=== PATIENT | male | born 1995 | race African-American/Black ===

== ENCOUNTER 2024-05-16 16:15 | Emergency (ER) | payer SELFPAY ==
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
[2024-05-16 18:07] VITALS: BP 119/70; PULSE 68; RESP 16; TEMP 36.8; O2SAT 100
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
== END 2024-05-16 20:45 | disposition home or self-care (01) ==
PROVIDERS: Emergency Provider Registered Nurse
DX: S16.1XXA Strain of muscle, fascia and tendon at neck level, initial encounter (principal); V89.0XXA Person injured in unspecified motor-vehicle accident, nontraffic, initial encounter
CPT/HCPCS: 72040; 99203; G0463

== ENCOUNTER 2024-06-11 16:23 | Emergency (ER) | payer SELFPAY ==
--- NOTE | ~2024-06-11 | CT_ITS ---
History: Right-sided headache PROCEDURE: CT head without contrast. COMPARISON: None TECHNIQUE: Axial imaging of the head performed from the skull base to the vertex without IV contrast. Sagittal a nd coronal reformations obtained. DLP: 605 mGy-cm FINDINGS: The ventricles are normal in size, shape and position. There is no mass, mass effect or midline shift. There is no abnormal extra-axial fluid collection or intracranial hemorrhage. Visualized paranasal sinuses are clear. The mastoid air cells are well aerated. No acute displaced fractures within the overlying cranium. Impression: No acute intracranial hemorrhage or suspicious mass effect. Reviewed, dictated and finalized at location A. GRINDER Impression: No acute intracranial hemorrhage or suspicious mass effect.
[2024-06-11 16:49] VITALS: BP 127/83; PULSE 81; RESP 19; TEMP 36.7; O2SAT 100
--- NOTE | 2024-06-11 17:23 | ED.HA ---
HPI - Headache General Chief Complaint: Headache Stated Complaint: Headache Time Seen by Provider: 06/11/24 16:26 Source: patient Mode of arrival: ambulatory Limitations: no limitations History of Present Illness HPI Narrative: Patient is a 28-year-old male who presents the ED with report a right-sided headache. Patient reports having intermittent headaches over the last couple of days. States they occur seasonally. Last episode was 2 days ago. Present in his right periorbital region. Pain is a throbbing sensation. He does have some drainage from right-sided eye and nose when the pain occurs. Began having pain again this afternoon which was more severe than usual. Took [id number] Excedrin and theraflu prior to arrival and reports some improvement of pain currently. Denies significant dizziness, lightheadedness, nausea, vomiting, vision changes, photophobia, phonophobia, fevers, focal weakness or numbness. Related Data Allergies Allergy/AdvReac Type Severity Reaction Status Date / Time No Known Allergies Allergy Verified 06/11/24 16:24 Review of Systems Review of Systems: All systems reviewed & are unremarkable except as noted in HPI. All systems reviewed & are unremarkable except as noted in HPI and below PMFSH Social History Social History Smoking status: Never smoker Alcohol intake: unknown Substance use: unknown Occupation/Education: student Gender identity (if verbalized by the patient): Male Exam Narrative: GENERAL: Well appearing, well-nourished, non-toxic, in no acute distress. HEAD: Normocephalic, atraumatic. EYES: PERRL/EOMI, conjunctiva clear. No nystagmus. NECK: Normal ROM, supple, no meningeal signs. RESPIRATORY: Airway patent, respirations nonlabored. Clear to auscultation bilaterally, no rales, rhonchi, wheezing. CARDIOVASCULAR: Regular rate and rhythm without murmurs, rubs, or gallops. MUSCULOSKELETAL: Moves all extremities. No gross deformities. SKIN: Warm, dry, normal color. NEURO: A&O X3. Speech clear. Cranial nerves II-XII grossly intact. Steady gait. No ataxic movements. Strength 5/5 in extremities. No focal deficits. PSYCHIATRIC: Appropriate mood and affect. Normal interaction. Course Vital Signs Vital signs: Vital Signs Temperature 98.0 F 06/11/24 16:49 Pulse Rate 81 06/11/24 16:49 Respiratory Rate 19 06/11/24 16:49 Blood Pressure 127/83 06/11/24 16:49 Pulse Oximetry 100 06/11/24 16:49 Oxygen Delivery Room Air 06/11/24 16:49 Temperature 98.0 F 06/11/24 16:49 Pulse Rate 72 06/11/24 17:45 Respiratory Rate 15 06/11/24 17:45 Blood Pressure 116/77 06/11/24 17:45 Pulse Oximetry 100 06/11/24 18:17 Oxygen Delivery Room Air 06/11/24 18:17 Oxygen Flow Rate 15 06/11/24 17:45 MDM - Headache MDM Narrative Medical decision making narrative: Patient presented to ED with intermittent episodes of right periorbital headache. Vital signs are stable upon arrival. Patient is in no acute distress. Patient is neurologically intact. No focal deficits appreciated on exam. Symptoms seem most consistent with cluster headache- unilateral, periorbital, temporal, ipsilateral lacrimation/nasal congestion, intermittent episodic pain, seasonal. CT brain was obtained and negative for acute findings. Patient was placed on non-rebreather mask for approx 15 minutes. On re-evaluation, he is feeling much improved. He did additionally take Tylenol and Excedrin prior to arrival. Offered to provide additional pain relief, however patient declined, feels pain is tolerable at this time. Ready to go home. Discussed further management of headaches at home, discussed possibility of cluster headache and recommendation to follow-up with neurology for further evaluation. He is in agreement with plan. Given strict return precautions. Discharged in stable condition. Medical Records Attestation: I reviewed the patient's medical records. Imaging Data Attestation: I personally reviewed and interpreted this imaging study as follows: Radiologist's impression: ITS Impressions Head CT 06/11/24 17:43 Impression: No acute intracranial hemorrhage or suspicious mass effect. Discharge Plan Discharge Clinical Impression: Cluster headache Qualifiers: Headache chronicity pattern: episodic headache Intractability: not intractable Qualified Code(s): G44.019 - Episodic cluster headache, not intractable Patient Disposition: Home, Self-Care Condition: Stable Instructions: Antibiotic Form, Cluster Headache (ED), Migraine Headache (ED) Additional Instructions: Continue Tylenol and ibuprofen as needed for pain. Utilize Zofran as needed for further nausea. Get plenty of rest. Stay well hydrated. Recommend low light/ low stimulus environment, limiting screen time. Follow-up with your primary care doctor and Neurology for further evaluation and management of headaches. Call Neurology office to make appointment. Return to the ED if you experience worsening or severe pain, severe dizziness, vision changes, unable to keep down food or drink, numbness or weakness of arm or leg, passing out, or any other symptoms of concern. Patient Language: South Korean Prescriptions: New ondansetron 4 mg tablet,disintegrating 4 mg PO Q8H PRN (Reason: nausea and vomiting) Qty: 15 0RF No Action cyclobenzaprine 10 mg tablet 10 mg PO HS PRN (Reason: muscle spasm) Qty: 10 0RF ibuprofen 600 mg tablet 600 mg PO QID PRN (Reason: fever or pain) Qty: 20 0RF Follow-up/Referrals: Deric Ness MD [Physician] - (NEUROLOGY) PHYSICIAN,LINEN ATTENDANT [Non-Staff] - Time of Disposition: 18:35
[2024-06-11 17:45] VITALS: BP 116/77; PULSE 72; RESP 15; O2SAT 100
[2024-06-11 18:17] VITALS: O2SAT 100
== END 2024-06-11 18:45 | disposition home or self-care (01) ==
LOC: ANHED 18:36
PROVIDERS: Emergency Provider Physician Assistant
DX: G44.019 Episodic cluster headache, not intractable (principal)
CPT/HCPCS: 70450; 99284

== ENCOUNTER 2024-06-19 14:33 | Emergency (ER) | payer SELFPAY ==
--- NOTE | ~2024-06-19 | CT_ITS ---
History: Headache PROCEDURE: CT head without contrast. COMPARISON: 06/11/2024 TECHNIQUE: Axial imaging of the head performed from the skull base to the vertex without IV contrast. Sagittal a nd coronal reformations obtained. DLP: 681 mGy-cm FINDINGS: The ventricles are normal in size, shape and position. There is no mass, mass effect or midline shift. There is no abnormal extra-axial fluid collection or intracranial hemorrhage. Visualized paranasal sinuses are clear. The mastoid air cells are well aerated. No acute displaced fractures within the overlying cranium. Impression: No acute intracranial hemorrhage or suspicious mass effect. Reviewed, dictated and finalized at location A. [employer] Impression: No acute intracranial hemorrhage or suspicious mass effect.
--- NOTE | ~2024-06-19 | CT_ITS ---
EXAMINATION: CTA brain carotid DATE: 06/19/2024 22:08 INDICATION: persistent headache, R sided TECHNIQUE: Computed tomographic angiography (CTA) of the head and neck was performed with 100 mL Omni paque-350 intravenous contrast. Automated exposure control and iterative reconstruction technique wer e employed. The dose-length product was 1132.01 mGy-cm. Maximum intensity projection and volume rende red 3D-reconstructions were created by the technologist on a separate workstation. COMPARISON: CT brain 06/19/2024. FINDINGS: CTA HEAD: No large vessel occlusion, aneurysm, high flow vascular malformation, nidus or extravasation. Patent cerebral veins. Symmetric parenchymal enhancement. CTA NECK: Aortic arch and proximal great vessels: Bovine arch. Atherosclerotic calcifications at the visualized aortic arch and proximal great vessels. Right common carotid, carotid bifurcation, and internal carotid artery: No plaque.There is 0% stenosi s of the proximal right internal carotid artery relative to normal distal artery lumen diameter (NASC ET criteria). Left common carotid, carotid bifurcation, and internal carotid artery: No plaque.There is 0% stenosis of the proximal left internal carotid artery relative to normal distal artery lumen diameter (NASCET criteria). Vertebral arteries: No significant plaque or stenosis. Right vertebral artery is dominant, Other findings: None. IMPRESSION: No large vessel intracranial occlusion, high-grade intracranial stenosis, or aneurysm. No carotid or vertebral artery occlusion, dissection, or significant stenosis. Reviewed, dictated and finalized at location K. [employer] SPECIALIST IMPRESSION: No large vessel intracranial occlusion, high-grade intracranial stenosis, or an eurysm. No carotid or vertebral artery occlusion, dissection, or significant stenosis.
[2024-06-19 14:36] VITALS: BP 119/71; PULSE 84; RESP 16; TEMP 36.4; O2SAT 100
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
[2024-06-19 16:58] VITALS: BP 121/82; PULSE 84; RESP 15; O2SAT 100
[2024-06-19] MEDS: ACETAMINOPHEN 500 MG TABLET 1000 MG PO (17:09)
[2024-06-19] MEDS: diphenhydrAMINE HCl INJ 50 MG/ML VIAL 25 MG IV PUSH (17:10)
[2024-06-19] MEDS: METOCLOPRAMIDE HCL INJ 10 MG/2 ML VIAL IV PUSH (17:15)
[2024-06-19 21:00] VITALS: BP 122/73; PULSE 82; RESP 18; O2SAT 98
[2024-06-19] MEDS: KETOROLAC 30 MG/ML VIAL (*BKC) IV PUSH (21:14)
[2024-06-19] MEDS: MAGNESIUM SULF 1 GM/D5W 100 ML 1 GM/100 ML BAG IVPB (21:14)
[2024-06-19] MEDS: SODIUM CHLORIDE 0.9% IV 1,000 ML 999 ML IV CONT (21:21)
[2024-06-19 21:37] LABS: Basophils Percent Auto 0.2 % (0.2-1.2); Eosinophils Percent Auto 0.5 % (0-4.4); Hemoglobin 15.5 g/dL (14.0-18.0); Immature Granulocyte Absolute 0.04 K/mm3 (0.00-0.031); Immature Granulocyte Percent A 0.7 % (0-0.5); Lymphocytes Absolute Auto 2.53 K/mm3 (0.9-3.2); Mean Corpuscular Hemoglobin 28.7 pg (26-34); Mean Platelet Volume 9.7 fl (7.4-10.4); Monocytes Absolute Auto 0.4 K/mm3 (0.1-0.6); Monocytes Percent Auto 7.3 % (2.6-8.5); Neutrophils Absolute Auto 2.8 K/mm3 (1.3-6.7); Neutrophils Percent Auto 48.3 % (45.5-73.1); Platelet Count Result 249 k/mm3 (150-375); Red Cell Distribution Width 13.2 % (11.5-14.5); White Blood Count 5.9 K/mm3 (4.5-10.0)
[2024-06-19 21:48] LABS: Alanine Aminotransferase 212 U/L (6-50); Albumin Level 4.7 g/dL (3.5-5.1); Alkaline Phosphatase 78 U/L (38-126); Anion Gap 11 mmol/L (4-12); Aspartate Amino Transferase 109 U/L (17-59); Bilirubin,Total 1.3 mg/dL (0.2-1.3); Blood Urea Nitrogen 10 mg/dL (9-20); Calcium 9.8 mg/dL (8.4-10.2); Carbon Dioxide 27 mmol/L (22-30); Chloride 101 mmol/L (98-107); Estimated CRCL calculation 131 ml/min; Estimated Glomerular Filt Rate > 60; Glucose 89 mg/dL (65-110); Potassium 4.1 mmol/L (3.4-5.0); Sodium 139 mmol/L (137-145)
[2024-06-19 21:49] LABS: Partial Thromboplastin Time 27.3 Seconds (22.3-36.8); Prothrombin Time 13.9 Seconds (11.1-14.7)
[2024-06-19 22:12] LABS: Erythrocyte Sedimentation Rate 1 mm/hr (0-20)
[2024-06-19 22:13] LABS: Influenza A QL RT-PCR Negative (Negative); Influenza B QL RT-PCR Negative (Negative); SARS-CoV-2 RNA PCR Negative (Negative)
[2024-06-19] MEDS: dexAMETHasone 2 MG TABLET 10 MG PO (23:12)
[2024-06-19 23:26] VITALS: BP 119/74; PULSE 82; RESP 18; TEMP 36.6; O2SAT 99
== END 2024-06-19 23:27 | disposition home or self-care (01) ==
PROVIDERS: Physician Assistant; Emergency Provider Student in an Organized Health Care Education/Training Program
DX: G43.909 Migraine, unspecified, not intractable, without status migrainosus (principal); R74.01 Elevation of levels of liver transaminase levels; Z20.822 Contact with and (suspected) exposure to COVID-19
CPT/HCPCS: 36415; 70450; 70496; 70498; 80053; 85025; 85610; 85652; 85730; 87636; 96361; 96365; 96375; 99284; A9270; J1200; J1885; J2765; J3475; J7030; J8540; Q9967